=== PATIENT | male | born 1995 | race Caucasian/White ===

== ENCOUNTER 2018-08-05 00:34 | Emergency (ER) | payer MEDICAID ==
[~2018-08-05] VITALS: Ht 172.7 cm; Wt 62.0 kg
[2018-08-05 00:38] VITALS: BP 122/76
== END 2018-08-05 02:50 | disposition home or self-care (01) ==
LOC: ER 00:36
DX: H92.02 Otalgia, left ear (principal); H61.23 Impacted cerumen, bilateral
CPT/HCPCS: 99281

== ENCOUNTER 2023-07-25 18:57 | Emergency (ER) | payer MEDICAID ==
[~2023-07-25] VITALS: Ht 177.8 cm; Wt 80.0 kg
[2023-07-25 19:05] VITALS: BP 129/83; PULSE 115; RESP 16; TEMP 98.4; O2SAT 99
[2023-07-25 23:01] LABS: BILIRUBIN,URINE NEGATIVE (Neg); CLARITY,URINE CLEAR (Clear); COLOR,URINE STRAW (Yellow); GLUCOSE, URINE NEGATIVE (Neg); KETONES,URINE NEGATIVE (Neg); LEUKOCYTE ESTERASE ,URINE NEGATIVE (Neg); NITRITES, URINE NEGATIVE (Neg); OCCULT BLOOD,URINE NEGATIVE (Neg); PROTEIN,URINE NEGATIVE (Neg); UROBILINOGEN,URINE 0.2 E.U/dL (0.2-1.0)
[2023-07-25 23:15] LABS: UA COLLECTION TYPE CLN CATCH MIDSTREAM
== END 2023-07-26 02:01 | disposition left against medical advice (07) ==
LOC: ER 18:58
DX: N50.812 Left testicular pain (principal); Z53.21 Procedure and treatment not carried out due to patient leaving prior to being seen by health care provider
CPT/HCPCS: 81003; 99281

== ENCOUNTER 2024-04-19 21:29 | Emergency (ER) | payer MEDICAID, OTHER ==
[~2024-04-19] VITALS: Ht 177.8 cm; Wt 77.3 kg
[2024-04-19 22:00] LABS: BILIRUBIN,URINE NEGATIVE (Neg); CLARITY,URINE SLIGHTLY CLOUDY (Clear); COLOR,URINE YELLOW (Yellow); GLUCOSE, URINE NEGATIVE (Neg); KETONES,URINE NEGATIVE (Neg); LEUKOCYTE ESTERASE ,URINE NEGATIVE (Neg); NITRITES, URINE NEGATIVE (Neg); OCCULT BLOOD,URINE NEGATIVE (Neg); PH,URINE 7.5 (4.8-8.0); PROTEIN,URINE 100 mg/dl (Neg); UROBILINOGEN,URINE 0.2 E.U/dL (0.2-1.0)
[2024-04-19] MEDS: ketorolac trometh 15mg/ml vial 15 MG/ML ML IM ONE (22:00)
[2024-04-19 22:10] LABS: UA COLLECTION TYPE CLN CATCH MIDSTREAM
[2024-04-19 22:11] LABS: AMORPHOUS PHOSPHATES 2+; SPERM FEW /HPF (NEGATIVE); SQUAMOUS EPITHELIAL CELL,UR NONE SEEN /LPF (FEW)
[2024-04-19 22:12] LABS: BACTERIA,URINE NONE SEEN /HPF (Neg); MUCUS STRANDS FEW /LPF (Neg); RBC,URINE 0-2 /HPF (0-2); WBC,URINE NONE SEEN /HPF (0-4)
[2024-04-19] MEDS ORDERED: DOXY100C43 PO (23:44)
[2024-04-19] MEDS: CefTRIAXone 500MG IM Kit w/LIDOcaine IM ONE (23:51)
[2024-04-19 23:52] VITALS: BP 132/94; PULSE 98; RESP 16; TEMP 98.2; O2SAT 100
== END 2024-04-19 23:56 | disposition home or self-care (01) ==
LOC: ER 21:30
DX: N45.2 Orchitis (principal); Z88.0 Allergy status to penicillin
CPT/HCPCS: 76870; 81001; 93976; 96372; 99285; J0696; J1885